=== PATIENT | male | born 1960 | race Two or more races ===

== ENCOUNTER 2021-09-24 09:16 | Inpatient (IN) | payer BC ==
[~2021-09-24] VITALS: Ht 170.2 cm; Wt 72.6 kg
[2021-09-24 09:47] LABS: BASOPHILS % 0.6 % (0.0-2.0); HEMATOCRIT. 48.8 % (42.0-52.0); HEMOGLOBIN. 16.4 g/dL (14.0-18.0); MEAN CORPUSCULAR HEMOGLOBIN 29.2 pg (28.0-32.0); MEAN CORPUSCULAR VOLUME 86.9 fL (80.0-94.0); MEAN PLATELET VOLUME 8.2 fl (7.4-10.4); MONOCYTES % 2.8 % (2.0-8.0); NEUTROPHILS % 73.6 % (40.0-76.0); PLATELET 213 x1000/uL (130-400); RED BLOOD CELL COUNT 5.62 mill/uL (4.7-6.1); RED CELL DISTRIBUTION WIDTH 14.3 % (11.6-14.6)
[2021-09-24 09:51] LABS: CHLORIDE 108 mEq/L (98-107)
[2021-09-24] MEDS ORDERED: ASPIRIN 325MG EC TABLET PO ONE (10:15)
[2021-09-24] MEDS ORDERED: FUROSEMIDE 40MG/4ML VIAL IVP ONE (10:15)
[2021-09-24] MEDS ORDERED: ENOXAPARIN 80MG/0.8ML SYR SUBCUT ONE (10:15)
[2021-09-24] MEDS ORDERED: ENALAPRIL 2.5MG/2ML VIAL 2ML IV ONE (10:15)
[2021-09-24] MEDS ORDERED: ENALAPRIL 1.25MG/ML VIAL 1ML IV NR (10:45)
[2021-09-24] MEDS ORDERED: ASPIRIN 325MG EC TABLET PO NR (11:45)
[2021-09-24] MEDS ORDERED: ENOXAPARIN 80MG/0.8ML SYR SUBCUT NR (11:45)
[2021-09-24] MEDS ORDERED: FUROSEMIDE 40MG/4ML VIAL IVP NR (11:45)
[2021-09-24] MEDS ORDERED: ENALAPRIL 1.25MG/ML VIAL 1ML IV SCH (12:15)
[2021-09-24] MEDS: AMLODIPINE 10MG TABLET PO SCH (12:56)
[2021-09-24] MEDS ORDERED: HYDROCODONE/ACETAMINOPHEN 5/325MG TABLET PO PRN (13:30)
[2021-09-24] MEDS ORDERED: CLONIDINE 0.1MG TABLET PO PRN (13:30)
[2021-09-24] MEDS ORDERED: ACETAMINOPHEN 325MG TABLET PO PRN (13:30)
[2021-09-24] MEDS ORDERED: ONDANSETRON HCL 4MG/2ML INJ IV PRN (13:30)
[2021-09-24] MEDS ORDERED: NALOXONE HCL 0.4MG/ML VIAL IV PRN (13:45)
[2021-09-24 16:15] VITALS: BP 125/74
[2021-09-24 17:00] VITALS: BP 168/82
[2021-09-24] MEDS: FUROSEMIDE 40MG/4ML VIAL IVP SCH (17:24)
[2021-09-24] MEDS ORDERED: DEXTROSE 50% WATER 50ML SYRINGE IV PRN (19:30)
[2021-09-24 20:00] VITALS: BP_SYST 125; BP_SYST 147; BP_DIAS 74; BP_DIAS 82
[2021-09-24] MEDS: BLOOD SUGAR DIAGNOSTIC STRIP TEST SCH (21:00)
[2021-09-24] MEDS: CARVEDILOL 3.125 MG TABLET PO SCH (22:01)
[2021-09-24] MEDS: INSULIN LISPRO 100 UNITS/ML SUBCUT SCH (22:02)
[2021-09-25] VITALS: BP 140/85
[2021-09-25 04:00] VITALS: BP_SYST 140; BP_SYST 161; BP_DIAS 71; BP_DIAS 92
[2021-09-25 06:48] LABS: BASOPHILS % 0.6 % (0.0-2.0); EOSINOPHILS % 2.5 % (0.0-5.0); HEMATOCRIT. 42.4 % (42.0-52.0); HEMOGLOBIN. 14.6 g/dL (14.0-18.0); LYMPHOCYTES % 33.9 % (20.0-50.0); MEAN CORPUSCULAR HEMOGLOBIN 29.2 pg (28.0-32.0); MEAN CORPUSCULAR VOLUME 85.1 fL (80.0-94.0); MEAN PLATELET VOLUME 8.6 fl (7.4-10.4); PLATELET 211 x1000/uL (130-400); RED BLOOD CELL COUNT 4.99 mill/uL (4.7-6.1); RED CELL DISTRIBUTION WIDTH 14.4 % (11.6-14.6)
[2021-09-25] MEDS: INSULIN LISPRO 100 UNITS/ML SUBCUT SCH ×2 (07:40→12:52)
[2021-09-25] MEDS: BLOOD SUGAR DIAGNOSTIC STRIP TEST SCH ×2 (07:43→12:46)
[2021-09-25 08:00] VITALS: BP 165/112
[2021-09-25] MEDS: CARVEDILOL 3.125 MG TABLET PO SCH (08:16)
[2021-09-25] MEDS: FUROSEMIDE 40MG/4ML VIAL IVP SCH (08:16)
[2021-09-25] MEDS: AMLODIPINE 10MG TABLET PO SCH (08:17)
[2021-09-25] MEDS ORDERED: ENOXAPARIN 40MG/0.4ML SYR SUBCUT SCH (09:00)
[2021-09-25] MEDS ORDERED: POTASSIUM CHLORIDE 20MEQ TABLET SR PO NR (09:30)
[2021-09-25 12:00] VITALS: BP 118/75
[2021-09-25 15:26] VITALS: BP 141/82
[2021-09-25 16:00] VITALS: BP 131/77
[2021-09-25] MEDS ORDERED: ATORVASTATIN CALCIUM 20MG TABLET PO SCH ×2 (21:00)
[2021-09-25] MEDS ORDERED: HYDRALAZINE HCL 25MG TABLET PO SCH (21:00)
== END 2021-09-25 17:00 | disposition home or self-care (01) | DRG 291 ==
LOC: ER 09:28 → EDBD 09:28 → 8WST 13:07 → EDBEDREQ 13:13 → EDBEDREQTM 13:13
PROVIDERS: ADMIT Hospitalist; ATTEND Hospitalist
DX: I13.0 Hypertensive heart and chronic kidney disease with heart failure and stage 1 through stage 4 chronic kidney disease, or unspecified chronic kidney disease (principal); I50.23 Acute on chronic systolic (congestive) heart failure; N17.9 Acute kidney failure, unspecified; E44.1 Mild protein-calorie malnutrition; I16.0 Hypertensive urgency; F17.210 Nicotine dependence, cigarettes, uncomplicated; E11.65 Type 2 diabetes mellitus with hyperglycemia; E78.5 Hyperlipidemia, unspecified; E11.22 Type 2 diabetes mellitus with diabetic chronic kidney disease; N18.9 Chronic kidney disease, unspecified; Z82.49 Family history of ischemic heart disease and other diseases of the circulatory system; Z68.25 Body mass index [BMI] 25.0-25.9, adult
CPT/HCPCS: 36415; 71045; 80048; 80053; 80061; 82962; 83036; 83735; 83880; 84484; 85025; 93005; 93306; 93970; 99291; J1650; J1815; J1940; J3490